=== PATIENT | male | born 1995 | race Two or more races ===

== ENCOUNTER 2023-12-04 20:18 | Emergency (ER) | payer OTHER ==
[~2023-12-04] VITALS: Ht 177.8 cm; Wt 70.3 kg
[2023-12-04] MEDS ORDERED: GUAIFENESIN/DEXTROMETHORPHAN 100 MG/5 ML ML PO ONE (21:00)
[2023-12-04] MEDS ORDERED: KETOROLAC TROMETHAMINE 60 MG VIAL IM ONE (21:00)
[2023-12-04] MEDS ORDERED: CETIRIZINE HCL 5 MG/5 ML ML PO ONE (21:00)
[2023-12-04] MEDS ORDERED: OSEL75CA PO (21:29)
[2023-12-04] MEDS ORDERED: TUSNEL LIQUID178 ML PO (21:29)
[2023-12-04 21:30] LABS: HEMATOCRIT 41.5 % (39.0-48.0); HEMOGLOBIN 14.5 g/dL (13-16.00); MEAN CELL VOLUME 91.5 fL (80.0-100.00); PLATELET COUNT 156 K/uL (150-450); RED BLOOD COUNT 4.53 M/uL (4.00-6.00); RED CELL DISTRIBUTION WIDTH 13.3 % (11.5-14.5)
[2023-12-04] MEDS ORDERED: OSELTAMIVIR PHOSPHATE 75 MG CAPSULE PO ONE (21:45)
== END 2023-12-04 22:40 | disposition home or self-care (01) ==
LOC: ER 20:18
PROVIDERS: Nurse Practitioner Family
DX: J10.1 Influenza due to other identified influenza virus with other respiratory manifestations (principal)